=== PATIENT | female | born 1980 | race Caucasian/White ===

== ENCOUNTER 2016-05-11 11:25 | Inpatient (IN) | payer BC ==
[2016-05-11 12:13] VITALS: BMI 29.1
--- NOTE | 2016-05-11 13:22 | HP ---
Admission ROS [facility] Chief Complaint: I AM HERE FOR REHAB FROM COCAINE ,HEROIN,MMTP 150 MGS/DAY,LAST MEIDCATED Saturday05/06/16 SCOLIOSIS ASTHMA LAST DETOX IN [facility] 05/06/16 TO 05/11/16 SOBRIETY PERIOD 9 YEARS Allergies/Adverse Reactions: Allergies Allergy/AdvReac Type Severity Reaction Status Date / Time No Known Allergies Allergy Verified 05/11/16 13:35 History of Present Illness: THIS 36 YEARS OLD FEMALE WITH HEROIN DEPENDENCE AND COCAINE DEPENDENCE,MMTP 150 MGS/DAY,LAST MEDICATED 05/06/16 FOR REHAB MENTIONED Exam Limitations: No Limitations - Ebola screening Have you traveled outside of the country in the last 21 days: No Have you had contact with anyone from an Ebola affected area: No Have you been sick,other than usual withdrawal symptoms: No Do you have a fever: No - Review of Systems Constitutional: No Symptoms Reported EENT: reports: No Symptoms Reported Respiratory: reports: No Symptoms reported, Other (ASTHMA) Cardiac: reports: No Symptoms Reported GI: reports: Nausea : reports: No Symptoms Reported Musculoskeletal: reports: Muscle Pain Integumentary: reports: No Symptoms Reported Neuro: reports: No Symptoms reported Endocrine: reports: No Symptoms Reported Hematology: reports: No Symptoms Reported Psychiatric: reports: No Sypmtoms Reported Other Systems: Reviewed and Negative Patient History - Patient Medical History Hx Anemia: No Hx Asthma: Yes (ON ALBUTROL INHALER) Hx Chronic Obstructive Pulmonary Disease (COPD): No Hx Cancer: No Hx Cardiac Disorders: No Hx Congestive Heart Failure: No Hx Hypertension: No Hx Hypercholesterolemia: No Hx Pacemaker: No HX Cerebrovascular Accident: No Hx Seizures: No Hx Dementia: No Hx Diabetes: No Hx Gastrointestinal Disorders: No Hx Liver Disease: No Hx Genitourinary Disorders: No Hx Sexually Transmitted Disorders: No Hx Renal Disease (ESRD): No Hx Thyroid Disease: No Hx Human Immunodeficiency Virus (HIV): No (LAST 01/13 NEGATIVE) Hx Hepatitis C: No Hx Depression: No Hx Suicide Attempt: No Hx Bipolar Disorder: No Hx Schizophrenia: No Other Medical History: NO SUICIDAL,NO HOMICIDAL - Patient Surgical History Past Surgical History: Yes Hx Section: Yes ( SECTION LAST 03/15/09) Other Surgical History: BREAST AUGMENTATION ,TONSILLECTOMY AT AGE OF 31 YEARS OLD ,S/P TUBAL LIGATION - PPD History Previous Implant?: Yes Documented Results: Negative w/proof PPD to be Administered?: No - Reproductive History Patient is a Female of Child Bearing Age (11 -55 yrs old): Yes Last Menstrual Period: 05/06/16 Patient : No - Smoking Cessation Smoking history: Never smoked - Substance & Tx. History Hx Alcohol Use: No Hx Substance Use: Yes Substance Use Type: Cocaine, Heroin Hx Substance Use Treatment: Yes ([facility] 05/06/16 TO 05/11/14) - Substances Abused Heroin Route: Injection Frequency: Daily Amount used: 10 BAGS Age of first use: 35 Date of Last Use: 05/06/16 Cocaine Route: Injection Frequency: 3-6 times per week Amount used: 80$ Age of first use: 35 Date of Last Use: 05/06/16 Family Disease History - Family Disease History Family History: Denies Admission Physical Exam [facility] - Vital Signs Vital Signs: Vital Signs - 24 hr 05/11/16 12:11 Temperature 97.2 F L Pulse Rate 110 H Respiratory 18 Rate Blood Pressure 115/95 - Physical General Appearance: Yes: Within Normal Limits HEENTM: Yes: Within Normal Limits Respiratory: Yes: Lungs Clear Neck: Yes: Within Normal Limits Breast: Yes: Breast Exam Deferred Cardiology: Yes: Within Normal Limits, Regular Rhythm, Regular Rate, S1, S2 Abdominal: Yes: Within Normal Limits, Normal Bowel Sounds, Non Tender, Flat, Soft Genitourinary: Yes: Within Normal Limits Back: Yes: Muscle Spasm Extremities: Yes: Within Normal Limits Neurological: Yes: Within Normal Limits, health spa manager II-XII NML intact, Fully Oriented, Alert, Motor Strength 5/5 Integumentary: Yes: Within Normal Limits Lymphatic: Yes: Within Normal Limits - Diagnostic (1) Heroin dependence Current Visit: Yes Status: Acute (2) Cocaine dependence Current Visit: Yes Status: Acute (3) Methadone maintenance therapy patient Current Visit: Yes Status: Acute (4) Scoliosis Current Visit: Yes Status: Acute Cleared for Admission [facility] - Detox or Rehab Claeared for Rehab Admission: Yes [facility] Breath Alcohol Content Breath Alcohol Content: 0 Urine Pregancy Test - Result Urine Test Results: Negative- NO Line Present Urine Drug Screen - Results Drug Screen Negative: No Urine Drug Screen Results: BZO-Benzodiazepines, MTD-Methadone
[2016-05-11] MEDS ORDERED: guaiFENesin/D-METHORPHAN HB 10 ML UNIT-DOSE CUPS PO PRN (13:50)
[2016-05-11] MEDS ORDERED: P-EPHED 60MG/TRIPROLIDI 2.5MG TABLET PO PRN (13:50)
[2016-05-11] MEDS ORDERED: LOPERAMIDE HCL 2 MG CAPSULE PO PRN (13:50)
[2016-05-11] MEDS ORDERED: METHADONE HCL 10 MG TABLET PO ONE (13:52)
[2016-05-11] MEDS ORDERED: METHADONE 80 MG, METHADONE 20 MG PO ONE (14:35)
[2016-05-11] MEDS ORDERED: METHADONE HCL 10 MG TABLET ONE (15:34)
[2016-05-11] MEDS ORDERED: METHADONE HCL 40 MG DISPERSABLE TABLET ONE (15:35)
[2016-05-11] MEDS ORDERED: PNEUMOC 13-VAL CONJ-DIP CRM/PF 0.5 ML DISP.SYRIN IM ONE (15:56)
[2016-05-11] MEDS: THIAMINE HCL 100 MG TABLET (FP) PO SCH (21:25)
[2016-05-11] MEDS: diphenhydrAMINE HCL 50 MG CAPSULE PO PRN (21:26)
[2016-05-12 03:24] LABS: URINE APPEARANCE CLOUDY; URINE BILIRUBIN NEGATIVE (NEGATIVE); URINE COLOR YELLOW; URINE GLUCOSE (UA) NEGATIVE (NEGATIVE); URINE KETONE NEGATIVE (NEGATIVE); URINE NITRITE POSITIVE (NEGATIVE); URINE PROTEIN NEGATIVE (NEGATIVE); URINE UROBILINOGEN NEGATIVE E.U./dl (0.2-1.0)
[2016-05-12 03:34] LABS: URINE BLOOD 2+ (NEGATIVE); URINE LEUK ESTERASE 3+ (NEGATIVE)
[2016-05-12 03:43] LABS: URINE BACTERIA FEW /hpf (NONE SEEN); URINE RBC 12 /hpf (0-3); URINE WBC 8 /hpf (3-5)
[2016-05-12] MEDS ORDERED: METHADONE HCL 10 MG TABLET PO ONE (06:00)
[2016-05-12] MEDS ORDERED: METHADONE 80 MG, METHADONE 30 MG PO ONE (06:00)
[2016-05-12] MEDS ORDERED: METHADONE HCL 10 MG TABLET ONE (06:14)
[2016-05-12] MEDS ORDERED: METHADONE HCL 40 MG DISPERSABLE TABLET ONE (06:15)
[2016-05-12] MEDS: IBUPROFEN 400 MG TABLET (FP) PO PRN ×3 (06:33→21:33)
[2016-05-12] MEDS: PRENATAL VITAMINS W/ FOLIC ACID TABLET (FP) PO SCH (09:47)
[2016-05-12] MEDS: MAGNESIUM HYDROX 2400MG/30ML ORAL SUSPENSION 30 ML CUP PO PRN (09:47)
[2016-05-12 11:11] LABS: ALBUMIN 4.1 g/dl (3.4-5.0); ANION GAP 9 (8-16); BILIRUBIN,TOTAL 0.3 mg/dL (0.2-1.0); CALCIUM 9.8 mg/dL (8.5-10.1); CO2 25 mmol/L (21-32); CREATININE 0.9 mg/dL (0.55-1.02); GLUCOSE,RANDOM 97 mg/dL (74-106); SGOT/AST 23 U/L (15-37); SGPT/ALT 21 U/L (12-78); TOT PROT 8.5 g/dl (6.4-8.2)
[2016-05-12 11:12] LABS: ALK PHOS 104 U/L (45-117)
[2016-05-12 11:14] LABS: MCH 21.8 pg (25.7-33.7); MCHC 31.2 g/dl (32.0-36.0); MEAN CELL VOLUME 69.8 fl (80-96); MEAN PLT VOLUME 10.2 fl (7.5-11.1); PLATELET COUNT 272 K/MM3 (134-434); RDW 17.5 % (11.6-15.6); WHITE BLOOD COUNT 6.4 K/mm3 (4.0-10.0)
[2016-05-12] MEDS ORDERED: INFLUENZA VACCINE 45 MCG/0.5 ML (MDV 16-17) IM ONE (12:00)
[2016-05-12] MEDS ORDERED: PNEUMOCOCCAL 23 VACCINE 0.5 ML VIAL IM ONE (12:00)
--- NOTE | 2016-05-12 13:36 | EKG ---
Test Reason : Blood Pressure : / mmHG Vent. Rate : 070 BPM Atrial Rate : 070 BPM P-R Int : 148 ms QRS Dur : 088 ms QT Int : 462 ms P-R-T Axes : 064 -18 041 degrees QTc Int : 498 ms NORMAL SINUS RHYTHM PROLONGED QT ABNORMAL ECG NO PREVIOUS ECGS AVAILABLE Confirmed by JOSÉ MANUEL STAPLETON MD ([id number]) on 05/12/2016 1:36:16 PM Referred By: Anushka Montes De Oca Confirmed By:JOSÉ MANUEL STAPLETON MD
--- NOTE | 2016-05-12 13:39 | PN ---
S Progress Note Note: EKG done today shows NSR, normal EKG D/C daily EKG
[2016-05-12] MEDS: diphenhydrAMINE HCL 50 MG CAPSULE PO PRN (21:33)
[2016-05-12] MEDS: THIAMINE HCL 100 MG TABLET (FP) PO SCH (21:33)
[2016-05-13] MEDS ORDERED: METHADONE HCL 40 MG DISPERSABLE TABLET PO ONE (06:00)
[2016-05-13] MEDS: IBUPROFEN 400 MG TABLET (FP) PO PRN ×2 (06:15→21:16)
[2016-05-13] MEDS: PRENATAL VITAMINS W/ FOLIC ACID TABLET (FP) PO SCH (10:08)
[2016-05-13] MEDS: diphenhydrAMINE HCL 50 MG CAPSULE PO PRN (21:16)
[2016-05-13] MEDS: THIAMINE HCL 100 MG TABLET (FP) PO SCH (21:16)
[2016-05-14] MEDS ORDERED: METHADONE HCL 10 MG TABLET PO ONE (06:00)
[2016-05-14] MEDS ORDERED: METHADONE 120 MG, METHADONE 10 MG PO ONE (06:00)
[2016-05-14] MEDS ORDERED: METHADONE HCL 10 MG TABLET ONE (06:01)
[2016-05-14] MEDS ORDERED: METHADONE HCL 40 MG DISPERSABLE TABLET ONE (06:02)
[2016-05-14] MEDS: MAG HYDROX/AL HYDROX/SIMETH 30 ML UNIT-DOSE CUP PO PRN (06:17)
[2016-05-14] MEDS: PRENATAL VITAMINS W/ FOLIC ACID TABLET (FP) PO SCH (10:14)
[2016-05-14] MEDS: MAGNESIUM HYDROX 2400MG/30ML ORAL SUSPENSION 30 ML CUP PO PRN (11:58)
--- NOTE | 2016-05-14 13:45 | HP ---
Psychiatrist Admission - Data Date of interview: 05/14/16 Admission source: [facility] Identifying data: This is the first admission to [address] [place] [address] for this 36 years old female mother of 4(17,10,8 and 7 yo),3 youngest kids [place] with their father in .Patient is unemployed,supported by family. Medical History: H/o Breast augmentation,C Section,Tubal ligation. Psychiatric History: denies Physical/Sexual Abuse/Trauma History: denies Vital Signs: Vital Signs - 24 hr 05/14/16 05/14/16 05/14/16 00:30 03:30 07:22 Temperature 97.3 F L Pulse Rate 73 Respiratory 18 18 18 Rate Blood Pressure 123/85 Allergies/Adverse Reactions: Allergies Allergy/AdvReac Type Severity Reaction Status Date / Time No Known Allergies Allergy Verified 05/11/16 13:35 Date of last physical exam: 05/11/16 Concur with the findings of this exam: Yes - Substance Abuse/Tx History Hx Alcohol Use: Yes (socially) Hx Substance Use: Yes (report cocaine since 35 yo,pain killers since 1997.heroin since 2016 ) Substance Use Type: Cocaine, Heroin 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) - Admission Criteria Previous failed treatment: Yes Poor recovery environment: Yes Comorbidities: Yes Lacks judgement: Yes Mental Status Exam - Mental Status Exam Alert and Oriented to: Time, Place, Person Cognitive Function: Grossly Intact Patient Appearance: Well Groomed Mood: Euthymic Affect: Mood Congruent Patient Behavior: Cooperative Speech Pattern: Clear Voice Loudness: Normal Thought Process: Goal Oriented Thought Disorder: Not Present Hallucinations: Denies Suicidal Ideation: Denies Homicidal Ideation: Denies Insight/Judgement: Fair Sleep: Fair Appetite: Fair Muscle strength/Tone: Normal Gait/Station: Normal Psychiatric Findings - Problem List ([place] 1, 2,3) (1) Cocaine dependence Current Visit: Yes Status: Chronic (2) Methadone maintenance therapy patient Current Visit: Yes Status: Chronic (3) Scoliosis Current Visit: Yes Status: Chronic (4) Opioid dependence Current Visit: Yes Status: Chronic - Initial Treatment Plan Initial Treatment Plan: Will monitor progress.
--- NOTE | 2016-05-14 16:23 | EKG ---
Test Reason : Blood Pressure : / mmHG Vent. Rate : 068 BPM Atrial Rate : 068 BPM P-R Int : 148 ms QRS Dur : 086 ms QT Int : 432 ms P-R-T Axes : 048 -06 035 degrees QTc Int : 459 ms NORMAL SINUS RHYTHM NORMAL ECG WHEN COMPARED WITH ECG OF 11-MAY-2016 22:25, NO SIGNIFICANT CHANGE WAS FOUND Confirmed by BABAK DONOVAN MD ([id number]) on 05/14/2016 4:22:57 PM Referred By: Anushka Montes De Oca Confirmed By:BABAK DONOVAN MD
[2016-05-14] MEDS: THIAMINE HCL 100 MG TABLET (FP) PO SCH (21:33)
[2016-05-14] MEDS: IBUPROFEN 400 MG TABLET (FP) PO PRN (21:33)
[2016-05-14] MEDS: hydrOXYzine PAMOATE 50 MG CAPSULE (FP) PO PRN (21:34)
[2016-05-14] MEDS: diphenhydrAMINE HCL 50 MG CAPSULE PO PRN (23:25)
[2016-05-15] MEDS ORDERED: METHADONE HCL 10 MG TABLET ONE (05:44)
[2016-05-15] MEDS ORDERED: METHADONE HCL 40 MG DISPERSABLE TABLET ONE (05:45)
[2016-05-15] MEDS ORDERED: METHADONE 120 MG, METHADONE 20 MG PO ONE (06:00)
[2016-05-15] MEDS ORDERED: METHADONE HCL 10 MG TABLET PO ONE (06:00)
[2016-05-15] MEDS: IBUPROFEN 400 MG TABLET (FP) PO PRN ×2 (06:32→21:32)
[2016-05-15] MEDS: ACETAMINOPHEN 325 MG TABLET (FP) PO PRN (10:03)
[2016-05-15] MEDS: MAG HYDROX/AL HYDROX/SIMETH 30 ML UNIT-DOSE CUP PO PRN (10:03)
[2016-05-15] MEDS: PRENATAL VITAMINS W/ FOLIC ACID TABLET (FP) PO SCH (10:03)
[2016-05-15] MEDS: diphenhydrAMINE HCL 50 MG CAPSULE PO PRN (21:30)
[2016-05-15] MEDS: THIAMINE HCL 100 MG TABLET (FP) PO SCH (21:30)
[2016-05-16] MEDS ORDERED: METHADONE HCL 10 MG TABLET PO ONE (06:00)
[2016-05-16] MEDS ORDERED: METHADONE HCL 10 MG TABLET ONE (06:00)
[2016-05-16] MEDS ORDERED: METHADONE HCL 40 MG DISPERSABLE TABLET ONE (06:01)
[2016-05-16] MEDS: METHADONE 120 MG, METHADONE 30 MG PO SCH (06:03)
[2016-05-16] MEDS: IBUPROFEN 400 MG TABLET (FP) PO PRN (06:04)
[2016-05-16] MEDS: MAGNESIUM HYDROX 2400MG/30ML ORAL SUSPENSION 30 ML CUP PO PRN (09:59)
[2016-05-16] MEDS: PRENATAL VITAMINS W/ FOLIC ACID TABLET (FP) PO SCH (09:59)
[2016-05-16] MEDS: THIAMINE HCL 100 MG TABLET (FP) PO SCH (21:24)
[2016-05-16] MEDS: traZODone HCL 50 MG TABLET (FP) PO SCH (21:25)
[2016-05-17] MEDS ORDERED: METHADONE HCL 40 MG DISPERSABLE TABLET ONE (03:21)
[2016-05-17] MEDS ORDERED: METHADONE HCL 10 MG TABLET ONE (03:21)
[2016-05-17] MEDS ORDERED: METHADONE HCL 10 MG TABLET PO SCH (06:00)
[2016-05-17] MEDS: METHADONE 120 MG, METHADONE 30 MG PO SCH (06:06)
[2016-05-17] MEDS: IBUPROFEN 400 MG TABLET (FP) PO PRN ×2 (06:07→16:02)
[2016-05-17] MEDS: PRENATAL VITAMINS W/ FOLIC ACID TABLET (FP) PO SCH (10:11)
[2016-05-17] MEDS: ACETAMINOPHEN 325 MG TABLET (FP) PO PRN (21:22)
[2016-05-17] MEDS: traZODone HCL 50 MG TABLET (FP) PO SCH (21:23)
[2016-05-17] MEDS: THIAMINE HCL 100 MG TABLET (FP) PO SCH (21:23)
[2016-05-18] MEDS ORDERED: METHADONE HCL 10 MG TABLET ONE (03:43)
[2016-05-18] MEDS ORDERED: METHADONE HCL 40 MG DISPERSABLE TABLET ONE (03:44)
[2016-05-18] MEDS: METHADONE 120 MG, METHADONE 30 MG PO SCH (06:12)
[2016-05-18] MEDS: ACETAMINOPHEN 325 MG TABLET (FP) PO PRN ×2 (06:15→15:10)
[2016-05-18] MEDS: PRENATAL VITAMINS W/ FOLIC ACID TABLET (FP) PO SCH (10:59)
[2016-05-18] MEDS: traZODone HCL 50 MG TABLET (FP) PO SCH (21:34)
[2016-05-18] MEDS: THIAMINE HCL 100 MG TABLET (FP) PO SCH (21:34)
[2016-05-18] MEDS: IBUPROFEN 400 MG TABLET (FP) PO PRN (21:36)
[2016-05-19] MEDS ORDERED: METHADONE HCL 10 MG TABLET ONE (05:41)
[2016-05-19] MEDS ORDERED: METHADONE HCL 40 MG DISPERSABLE TABLET ONE (05:42)
[2016-05-19] MEDS: METHADONE 120 MG, METHADONE 30 MG PO SCH (06:08)
[2016-05-19] MEDS: ACETAMINOPHEN 325 MG TABLET (FP) PO PRN (06:11)
[2016-05-19] MEDS ORDERED: PT OWN MED DRAWER 7, Y5N ONE (09:02)
[2016-05-19] MEDS: PRENATAL VITAMINS W/ FOLIC ACID TABLET (FP) PO SCH (10:14)
[2016-05-19] MEDS: MAGNESIUM HYDROX 2400MG/30ML ORAL SUSPENSION 30 ML CUP PO PRN (12:48)
[2016-05-19] MEDS: MENTHOL/PHENOL 1 EACH UD MM PRN (12:48)
[2016-05-19] MEDS: traZODone HCL 50 MG TABLET (FP) PO SCH (21:35)
[2016-05-19] MEDS: THIAMINE HCL 100 MG TABLET (FP) PO SCH (21:35)
[2016-05-19] MEDS: IBUPROFEN 400 MG TABLET (FP) PO PRN (21:36)
[2016-05-20] MEDS ORDERED: METHADONE HCL 40 MG DISPERSABLE TABLET ONE (05:44)
[2016-05-20] MEDS ORDERED: METHADONE HCL 10 MG TABLET ONE (05:44)
[2016-05-20] MEDS: METHADONE 120 MG, METHADONE 30 MG PO SCH (05:58)
[2016-05-20] MEDS: PRENATAL VITAMINS W/ FOLIC ACID TABLET (FP) PO SCH (10:01)
[2016-05-20] MEDS: MENTHOL/PHENOL 1 EACH UD MM PRN (10:01)
[2016-05-20] MEDS: IBUPROFEN 400 MG TABLET (FP) PO PRN (11:52)
[2016-05-20] MEDS: traZODone HCL 50 MG TABLET (FP) PO SCH (21:30)
[2016-05-20] MEDS: THIAMINE HCL 100 MG TABLET (FP) PO SCH (21:30)
[2016-05-20] MEDS: hydrOXYzine PAMOATE 50 MG CAPSULE (FP) PO PRN (21:32)
[2016-05-21] MEDS ORDERED: METHADONE HCL 10 MG TABLET ONE (05:42)
[2016-05-21] MEDS ORDERED: METHADONE HCL 40 MG DISPERSABLE TABLET ONE (05:42)
[2016-05-21] MEDS: METHADONE 120 MG, METHADONE 30 MG PO SCH (06:18)
[2016-05-21] MEDS: IBUPROFEN 400 MG TABLET (FP) PO PRN ×2 (06:21→21:29)
[2016-05-21] MEDS: PRENATAL VITAMINS W/ FOLIC ACID TABLET (FP) PO SCH (09:54)
[2016-05-21] MEDS: MENTHOL/PHENOL 1 EACH UD MM PRN (09:56)
[2016-05-21] MEDS: THIAMINE HCL 100 MG TABLET (FP) PO SCH (21:29)
[2016-05-21] MEDS: hydrOXYzine PAMOATE 50 MG CAPSULE (FP) PO PRN (21:29)
[2016-05-21] MEDS: traZODone HCL 50 MG TABLET (FP) PO SCH (21:29)
[2016-05-22] MEDS ORDERED: METHADONE HCL 10 MG TABLET ONE (05:20)
[2016-05-22] MEDS ORDERED: METHADONE HCL 40 MG DISPERSABLE TABLET ONE (05:20)
[2016-05-22] MEDS ORDERED: METHADONE HCL 10 MG TABLET PO SCH (06:00)
[2016-05-22] MEDS: METHADONE 120 MG, METHADONE 30 MG PO SCH (06:03)
[2016-05-22] MEDS: IBUPROFEN 400 MG TABLET (FP) PO PRN ×2 (06:06→21:36)
[2016-05-22] MEDS: PRENATAL VITAMINS W/ FOLIC ACID TABLET (FP) PO SCH (10:03)
[2016-05-22] MEDS: MAGNESIUM HYDROX 2400MG/30ML ORAL SUSPENSION 30 ML CUP PO PRN (10:04)
[2016-05-22] MEDS: THIAMINE HCL 100 MG TABLET (FP) PO SCH (21:36)
[2016-05-22] MEDS: traZODone HCL 50 MG TABLET (FP) PO SCH (21:36)
[2016-05-22] MEDS: hydrOXYzine PAMOATE 50 MG CAPSULE (FP) PO PRN (21:36)
[2016-05-22] MEDS: DOCUSATE SODIUM 100 MG CAPSULE (FP) PO SCH (21:36)
[2016-05-23] MEDS ORDERED: METHADONE HCL 10 MG TABLET ONE (03:09)
[2016-05-23] MEDS ORDERED: METHADONE HCL 40 MG DISPERSABLE TABLET ONE (03:09)
[2016-05-23] MEDS: METHADONE 120 MG, METHADONE 30 MG PO SCH (06:10)
[2016-05-23] MEDS: IBUPROFEN 400 MG TABLET (FP) PO PRN (06:11)
[2016-05-23] MEDS: MAGNESIUM CITRATE 300 ML BOTTLE PO PRN (10:11)
[2016-05-23] MEDS: DOCUSATE SODIUM 100 MG CAPSULE (FP) PO SCH ×2 (10:11→21:31)
[2016-05-23] MEDS: PRENATAL VITAMINS W/ FOLIC ACID TABLET (FP) PO SCH (10:11)
--- NOTE | 2016-05-23 16:40 | PN ---
Psychiatric Progress Note Vital Signs: Vital Signs Period Temp Pulse Resp BP Sys/Ahuja Pulse Ox Last 24 Hr 97.1 F 75 18-18 113/80 Date of Session: 05/23/16 Chief Complaint:: My sleep is still big problem. HPI: Patient addressed Opioid and Cocaine dependence comorbid with Substance induced mood/sleep disorder. Current Medications: Active Medications Generic Name Dose Route Start Last Admin Trade Name Freq PRN Reason Stop Dose Admin Acetaminophen 650 mg 05/11/16 13:50 05/19/16 06:11 Tylenol - PO 650 mg Q4H PRN Administration PAIN Al Hydroxide/Mg Hydroxide 30 ml 05/11/16 13:50 05/15/16 10:03 Mylanta Oral Suspension - PO 30 ml Q6H PRN Administration DYSPEPSIA Diphenhydramine HCl 50 mg 05/11/16 13:50 05/15/16 21:30 Benadryl - PO 50 mg HSMR1 PRN Administration INSOMNIA Docusate Sodium 100 mg 05/22/16 22:00 05/23/16 10:11 Colace - PO 100 mg BID ADI Administration Eucalyptus/Menthol/Phenol/Sorbitol 1 each 05/11/16 13:50 05/21/16 09:56 Cepastat Lozenge - MM 1 each Q4H PRN Administration SORE THROAT Guaifenesin 10 ml 05/11/16 13:50 Robitussin Dm - PO Q6H PRN COUGH Hydroxyzine Pamoate 50 mg 05/11/16 13:50 05/22/16 21:36 Vistaril - PO 50 mg Q4H PRN Administration AGITATION Ibuprofen 400 mg 05/11/16 13:50 05/23/16 06:11 Motrin - PO 400 mg Q6H PRN Administration SEVERE PAIN Loperamide HCl 4 mg 05/11/16 13:50 Imodium - PO Q6H PRN DIARRHEA Magnesium Citrate 300 ml 05/11/16 13:50 05/23/16 10:11 Citroma - PO 300 ml Q48H PRN Administration CONSTIPATION Magnesium Hydroxide 30 ml 05/11/16 13:50 05/22/16 10:04 Milk Of Magnesia - PO 30 ml DAILY PRN Administration CONSTIPATION Methadone HCl 120 mg/ 150 mg 05/22/16 06:00 05/23/16 06:10 Methadone HCl 30 mg PO 150 mg DAILY@0600 ADI Administration Multivit/Folic Acid/Iron 1 tab 05/12/16 10:00 05/23/16 10:11 Vitamins (Sjr) - PO 1 tab DAILY ADI Administration Pseudoephedrine/Triprolidine 1 combo 05/11/16 13:50 Actifed - PO TID PRN NASAL CONGESTION Thiamine HCl 100 mg 05/11/16 22:00 05/22/16 21:36 Vitamin B1 - PO 100 mg HS ADI Administration Trazodone HCl 100 mg 05/23/16 22:00 Desyrel - PO HS ADI Current Side Effect: No Lab tests ordered: No Lab tests reviewed: Yes Provider note:: Patient was evaluated today ,chart was revuewed.She addressed sleeping difficulties,still not able to fall asleep and sleep pattern is interrupted. Properties of Trazodone and other medications for insomnia has been discussed with the patient including side effects,benefits and dose adjustment. Supportive therapy provided. Trazodone 50 mg po hs will be adjusted to 100 mg po hs. Supportive therapy provided. Total face to face time:: 30 Mental Status Exam - Mental Status Exam Alert and Oriented to: Time, Place, Person Cognitive Function: Grossly Intact Patient Appearance: Well Groomed Mood: Anxious Affect: Labile Patient Behavior: Cooperative Speech Pattern: Clear Voice Loudness: Normal Thought Process: Goal Oriented Thought Disorder: Not Present Hallucinations: Denies Suicidal Ideation: Denies Homicidal Ideation: Denies Insight/Judgement: Fair Sleep: Difficulty falling asleep Appetite: Good Muscle strength/Tone: Normal Gait/Station: Normal Psychiatric Treatment Plan - Problem List (1) Cocaine dependence Current Visit: Yes (2) Methadone maintenance therapy patient Current Visit: Yes (3) Scoliosis Current Visit: Yes (4) Opioid dependence Current Visit: Yes
[2016-05-23] MEDS: THIAMINE HCL 100 MG TABLET (FP) PO SCH (21:31)
[2016-05-23] MEDS: traZODone HCL 100 MG TABLET (FP) PO SCH (21:32)
[2016-05-23] MEDS: ACETAMINOPHEN 325 MG TABLET (FP) PO PRN (21:33)
[2016-05-23] MEDS: hydrOXYzine PAMOATE 50 MG CAPSULE (FP) PO PRN (21:33)
[2016-05-24] MEDS ORDERED: METHADONE HCL 10 MG TABLET ONE (03:12)
[2016-05-24] MEDS ORDERED: METHADONE HCL 40 MG DISPERSABLE TABLET ONE (03:12)
[2016-05-24] MEDS: METHADONE 120 MG, METHADONE 30 MG PO SCH (05:58)
[2016-05-24] MEDS: IBUPROFEN 400 MG TABLET (FP) PO PRN (06:00)
[2016-05-24] MEDS: DOCUSATE SODIUM 100 MG CAPSULE (FP) PO SCH ×2 (10:15→21:31)
[2016-05-24] MEDS: PRENATAL VITAMINS W/ FOLIC ACID TABLET (FP) PO SCH (10:15)
[2016-05-24] MEDS ORDERED: PT OWN MED DRAWER 7, Y5N ONE (15:12)
[2016-05-24] MEDS: ACETAMINOPHEN 325 MG TABLET (FP) PO PRN (15:15)
[2016-05-24] MEDS: traZODone HCL 100 MG TABLET (FP) PO SCH (21:31)
[2016-05-24] MEDS: THIAMINE HCL 100 MG TABLET (FP) PO SCH (21:31)
[2016-05-24] MEDS: hydrOXYzine PAMOATE 50 MG CAPSULE (FP) PO PRN (21:32)
[2016-05-25] MEDS ORDERED: METHADONE HCL 10 MG TABLET ONE (05:34)
[2016-05-25] MEDS ORDERED: METHADONE HCL 40 MG DISPERSABLE TABLET ONE (05:35)
[2016-05-25] MEDS: METHADONE 120 MG, METHADONE 30 MG PO SCH (06:04)
[2016-05-25] MEDS: IBUPROFEN 400 MG TABLET (FP) PO PRN ×3 (06:05→21:38)
[2016-05-25] MEDS: PRENATAL VITAMINS W/ FOLIC ACID TABLET (FP) PO SCH (09:56)
[2016-05-25] MEDS: DOCUSATE SODIUM 100 MG CAPSULE (FP) PO SCH ×2 (09:56→21:38)
--- NOTE | 2016-05-25 13:27 | PN ---
[facility] Progress Note Note: Pt. C/O RCVA tenderness Vital Signs - 8 hr 05/25/16 06:49 Temperature 98.3 F Pulse Rate 105 H Respiratory 18 Rate Blood Pressure 99/66 Laboratory Tests 05/11/16 05/12/16 05/12/16 16:04 06:20 06:20 WBC 6.4 RBC 5.82 H Hgb 12.7 Hct 40.6 MCV 69.8 L MCHC 31.2 L RDW 17.5 H Plt Count 272 MPV 10.2 Sodium 141 Potassium 4.3 Chloride 107 Carbon Dioxide 25 Anion Gap 9 BUN 10 Creatinine 0.9 Creat Clearance w eGFR > 60 Random Glucose 97 Calcium 9.8 Total Bilirubin 0.3 AST 23 ALT 21 Alkaline Phosphatase 104 Total Protein 8.5 H Albumin 4.1 Urine Color Yellow Urine Appearance Cloudy Urine pH 7.0 Ur Specific [place] 1.005 Urine Protein Negative Urine Glucose (UA) Negative Urine Ketones Negative Urine Blood 2+ H Urine Nitrite Positive Urine Bilirubin Negative Urine Urobilinogen Negative Ur Leukocyte Esterase 3+ H Urine RBC 12 Urine WBC 8 Ur Epithelial Cells Moderate Urine Bacteria Few RPR Titer 05/12/16 06:20 WBC RBC Hgb Hct MCV MCHC RDW Plt Count MPV Sodium Potassium Chloride Carbon Dioxide Anion Gap BUN Creatinine Creat Clearance w eGFR Random Glucose Calcium Total Bilirubin AST ALT Alkaline Phosphatase Total Protein Albumin Urine Color Urine Appearance Urine pH Ur Specific [place] Urine Protein Urine Glucose (UA) Urine Ketones Urine Blood Urine Nitrite Urine Bilirubin Urine Urobilinogen Ur Leukocyte Esterase Urine RBC Urine WBC Ur Epithelial Cells Urine Bacteria RPR Titer Nonreactive U/A consistent with UTI P : start Bactrim ds bid x 7 days
[2016-05-25] MEDS: SULFAMETHOXAZOLE/TRIMETHOPRIM 800MG/160MG D.S. TABLET PO SCH ×2 (14:11→21:38)
[2016-05-25] MEDS: hydrOXYzine PAMOATE 50 MG CAPSULE (FP) PO PRN (21:38)
[2016-05-25] MEDS: traZODone HCL 100 MG TABLET (FP) PO SCH (21:38)
[2016-05-25] MEDS: THIAMINE HCL 100 MG TABLET (FP) PO SCH (22:30)
[2016-05-26] MEDS ORDERED: METHADONE HCL 40 MG DISPERSABLE TABLET ONE (03:12)
[2016-05-26] MEDS ORDERED: METHADONE HCL 10 MG TABLET ONE (03:12)
[2016-05-26] MEDS: METHADONE 120 MG, METHADONE 30 MG PO SCH (06:05)
[2016-05-26] MEDS: IBUPROFEN 400 MG TABLET (FP) PO PRN ×2 (06:06→21:28)
[2016-05-26] MEDS: SULFAMETHOXAZOLE/TRIMETHOPRIM 800MG/160MG D.S. TABLET PO SCH ×2 (10:08→21:28)
[2016-05-26] MEDS: PRENATAL VITAMINS W/ FOLIC ACID TABLET (FP) PO SCH (10:09)
[2016-05-26] MEDS: MAGNESIUM HYDROX 2400MG/30ML ORAL SUSPENSION 30 ML CUP PO PRN (10:09)
[2016-05-26] MEDS: DOCUSATE SODIUM 100 MG CAPSULE (FP) PO SCH ×2 (10:09→21:28)
[2016-05-26] MEDS: MAGNESIUM CITRATE 300 ML BOTTLE PO PRN (14:43)
[2016-05-26] MEDS: traZODone HCL 100 MG TABLET (FP) PO SCH (21:28)
[2016-05-26] MEDS: THIAMINE HCL 100 MG TABLET (FP) PO SCH (21:28)
[2016-05-27] MEDS ORDERED: METHADONE HCL 10 MG TABLET ONE (03:13)
[2016-05-27] MEDS ORDERED: METHADONE HCL 40 MG DISPERSABLE TABLET ONE (03:13)
[2016-05-27] MEDS: METHADONE 120 MG, METHADONE 30 MG PO SCH (06:04)
[2016-05-27] MEDS: IBUPROFEN 400 MG TABLET (FP) PO PRN ×2 (06:05→17:35)
[2016-05-27] MEDS: SULFAMETHOXAZOLE/TRIMETHOPRIM 800MG/160MG D.S. TABLET PO SCH ×2 (09:50→21:23)
[2016-05-27] MEDS: PRENATAL VITAMINS W/ FOLIC ACID TABLET (FP) PO SCH (09:50)
[2016-05-27] MEDS: DOCUSATE SODIUM 100 MG CAPSULE (FP) PO SCH ×2 (09:50→21:23)
[2016-05-27] MEDS: MAGNESIUM HYDROX 2400MG/30ML ORAL SUSPENSION 30 ML CUP PO PRN (16:32)
[2016-05-27] MEDS: traZODone HCL 100 MG TABLET (FP) PO SCH (21:23)
[2016-05-27] MEDS: THIAMINE HCL 100 MG TABLET (FP) PO SCH (21:23)
[2016-05-27] MEDS: hydrOXYzine PAMOATE 50 MG CAPSULE (FP) PO PRN (21:23)
[2016-05-28] MEDS ORDERED: METHADONE HCL 10 MG TABLET ONE (03:12)
[2016-05-28] MEDS ORDERED: METHADONE HCL 40 MG DISPERSABLE TABLET ONE (03:12)
[2016-05-28] MEDS: METHADONE 120 MG, METHADONE 30 MG PO SCH (06:03)
[2016-05-28] MEDS: IBUPROFEN 400 MG TABLET (FP) PO PRN ×2 (06:04→21:39)
[2016-05-28] MEDS: PRENATAL VITAMINS W/ FOLIC ACID TABLET (FP) PO SCH (10:18)
[2016-05-28] MEDS: SULFAMETHOXAZOLE/TRIMETHOPRIM 800MG/160MG D.S. TABLET PO SCH (10:18)
[2016-05-28] MEDS: DOCUSATE SODIUM 100 MG CAPSULE (FP) PO SCH ×2 (10:18→21:39)
--- NOTE | 2016-05-28 14:31 | PN ---
[facility] Progress Note Note: Microbiology 05/25/16 14:00 Urine - Urine Clean Catch Urine Culture - Final Strep Agalactiae Group B Sensitive to levaquin, we'll d/c bactrim ds. pt. still c/o constipation we'll give fleet's enema
[2016-05-28] MEDS ORDERED: SODIUM PHOSPHATE/NA BIPHOS 133 ML ENEMA PR ONE (15:30)
[2016-05-28] MEDS: LIDOCAINE 5% TOPICAL PATCH TP SCH (15:43)
[2016-05-28] MEDS: LEVOFLOXACIN 500 MG TABLET (FP) PO SCH (15:51)
--- NOTE | 2016-05-28 15:55 | PN ---
Psychiatric Progress Note Vital Signs: Vital Signs Period Temp Pulse Resp BP Sys/Ahuja Pulse Ox Last 24 Hr 97.5 F 67 18-18 118/80 Date of Session: 05/28/16 Chief Complaint:: Arik depressed ,Arik thinking too much about my situation." HPI: Patient addressed Opioid and Cocaine dependence comorbid with Substance induced mood disorder. ROS: Significant for scoliosis. Current Medications: Active Medications Generic Name Dose Route Start Last Admin Trade Name Freq PRN Reason Stop Dose Admin Acetaminophen 650 mg 05/11/16 13:50 05/24/16 15:15 Tylenol - PO 650 mg Q4H PRN Administration PAIN Al Hydroxide/Mg Hydroxide 30 ml 05/11/16 13:50 05/15/16 10:03 Mylanta Oral Suspension - PO 30 ml Q6H PRN Administration DYSPEPSIA Diphenhydramine HCl 50 mg 05/11/16 13:50 05/15/16 21:30 Benadryl - PO 50 mg HSMR1 PRN Administration INSOMNIA Docusate Sodium 100 mg 05/22/16 22:00 05/28/16 10:18 Colace - PO 100 mg BID ADI Administration Eucalyptus/Menthol/Phenol/Sorbitol 1 each 05/11/16 13:50 05/21/16 09:56 Cepastat Lozenge - MM 1 each Q4H PRN Administration SORE THROAT Guaifenesin 10 ml 05/11/16 13:50 Robitussin Dm - PO Q6H PRN COUGH Hydroxyzine Pamoate 50 mg 05/11/16 13:50 05/27/16 21:23 Vistaril - PO 50 mg Q4H PRN Administration AGITATION Ibuprofen 400 mg 05/11/16 13:50 05/28/16 06:04 Motrin - PO 400 mg Q6H PRN Administration SEVERE PAIN Levofloxacin 500 mg 05/28/16 15:30 Levaquin - PO DAILY@0600 ADI Lidocaine 1 patch 05/28/16 15:30 05/28/16 15:43 Lidoderm Patch - TP 1 patch DAILY ADI Administration Loperamide HCl 4 mg 05/11/16 13:50 Imodium - PO Q6H PRN DIARRHEA Magnesium Citrate 300 ml 05/11/16 13:50 05/26/16 14:43 Citroma - PO 300 ml Q48H PRN Administration CONSTIPATION Magnesium Hydroxide 30 ml 05/11/16 13:50 05/27/16 16:32 Milk Of Magnesia - PO 30 ml DAILY PRN Administration CONSTIPATION Methadone HCl 120 mg/ 150 mg 05/22/16 06:00 05/28/16 06:03 Methadone HCl 30 mg PO 150 mg DAILY@0600 ADI Administration Multivit/Folic Acid/Iron 1 tab 05/12/16 10:00 05/28/16 10:18 Vitamins (Sjr) - PO 1 tab DAILY ADI Administration Pseudoephedrine/Triprolidine 1 combo 05/11/16 13:50 Actifed - PO TID PRN NASAL CONGESTION Thiamine HCl 100 mg 05/11/16 22:00 05/27/16 21:23 Vitamin B1 - PO 100 mg HS ADI Administration Trazodone HCl 100 mg 05/23/16 22:00 05/27/16 21:23 Desyrel - PO 100 mg HS ADI Administration Current Side Effect: No Lab tests ordered: No Lab tests reviewed: Yes Provider note:: Chart was revuewed ,patient was evaluated due to ongoing depressed mood,mood instability.She reports thinking a lot about her current situation,preoccupation with negative thougths.Properties of Zoloft has been discussed with the patient including side effect profile,benefits and dose adjustment.Zoloft 25 mg po daily will be started today. Supportive therapy provided. Total face to face time:: 30 Mental Status Exam - Mental Status Exam Alert and Oriented to: Time, Place, Person Cognitive Function: Grossly Intact Patient Appearance: Well Groomed Mood: Anxious Affect: Mood Congruent, Labile Patient Behavior: Cooperative Speech Pattern: Clear Voice Loudness: Normal Thought Process: Goal Oriented Thought Disorder: Not Present Hallucinations: Denies Suicidal Ideation: Denies Homicidal Ideation: Denies Insight/Judgement: Fair Sleep: Fair Appetite: Good Muscle strength/Tone: Normal Gait/Station: Normal Psychiatric Treatment Plan - Problem List (1) Cocaine dependence Current Visit: Yes (2) Methadone maintenance therapy patient Current Visit: Yes (3) Scoliosis Current Visit: Yes (4) Opioid dependence Current Visit: Yes (5) Substance induced mood disorder Current Visit: Yes
[2016-05-28] MEDS: SERTRALINE HCL 25 MG TABLET (FP) PO SCH (19:25)
[2016-05-28] MEDS: traZODone HCL 100 MG TABLET (FP) PO SCH (21:40)
[2016-05-28] MEDS: THIAMINE HCL 100 MG TABLET (FP) PO SCH (21:40)
[2016-05-29] MEDS ORDERED: METHADONE HCL 40 MG DISPERSABLE TABLET ONE (05:47)
[2016-05-29] MEDS ORDERED: METHADONE HCL 10 MG TABLET ONE (05:47)
[2016-05-29] MEDS: METHADONE 120 MG, METHADONE 30 MG PO SCH (05:49)
[2016-05-29] MEDS: LEVOFLOXACIN 500 MG TABLET (FP) PO SCH (06:22)
[2016-05-29] MEDS ORDERED: PT OWN MED DRAWER 7, Y5N ONE (08:38)
[2016-05-29] MEDS: LIDOCAINE 5% TOPICAL PATCH TP SCH (10:31)
[2016-05-29] MEDS: DOCUSATE SODIUM 100 MG CAPSULE (FP) PO SCH ×2 (10:32→21:35)
[2016-05-29] MEDS: PRENATAL VITAMINS W/ FOLIC ACID TABLET (FP) PO SCH (10:32)
[2016-05-29] MEDS: SERTRALINE HCL 25 MG TABLET (FP) PO SCH (10:32)
[2016-05-29] MEDS: IBUPROFEN 400 MG TABLET (FP) PO PRN (17:42)
[2016-05-29] MEDS: traZODone HCL 100 MG TABLET (FP) PO SCH (21:35)
[2016-05-29] MEDS: THIAMINE HCL 100 MG TABLET (FP) PO SCH (21:35)
[2016-05-29] MEDS: hydrOXYzine PAMOATE 50 MG CAPSULE (FP) PO PRN (21:36)
[2016-05-30] MEDS ORDERED: METHADONE HCL 40 MG DISPERSABLE TABLET ONE (05:54)
[2016-05-30] MEDS ORDERED: METHADONE HCL 10 MG TABLET ONE ×2 (05:54→06:25)
[2016-05-30] MEDS ORDERED: METHADONE HCL 10 MG TABLET PO SCH (06:00)
[2016-05-30] MEDS: METHADONE 120 MG, METHADONE 30 MG PO SCH (06:24)
[2016-05-30] MEDS: LEVOFLOXACIN 500 MG TABLET (FP) PO SCH (06:27)
[2016-05-30] MEDS: IBUPROFEN 400 MG TABLET (FP) PO PRN ×2 (06:27→21:34)
[2016-05-30] MEDS: PRENATAL VITAMINS W/ FOLIC ACID TABLET (FP) PO SCH (10:34)
[2016-05-30] MEDS: LIDOCAINE 5% TOPICAL PATCH TP SCH (10:34)
[2016-05-30] MEDS: DOCUSATE SODIUM 100 MG CAPSULE (FP) PO SCH ×2 (10:34→21:32)
[2016-05-30] MEDS: SERTRALINE HCL 25 MG TABLET (FP) PO SCH (10:34)
[2016-05-30] MEDS: MAGNESIUM CITRATE 300 ML BOTTLE PO PRN (15:28)
[2016-05-30] MEDS: traZODone HCL 100 MG TABLET (FP) PO SCH (21:32)
[2016-05-30] MEDS: THIAMINE HCL 100 MG TABLET (FP) PO SCH (21:32)
[2016-05-30] MEDS: hydrOXYzine PAMOATE 50 MG CAPSULE (FP) PO PRN (21:34)
[2016-05-31] MEDS ORDERED: METHADONE HCL 40 MG DISPERSABLE TABLET ONE (03:12)
[2016-05-31] MEDS ORDERED: METHADONE HCL 10 MG TABLET ONE (03:12)
[2016-05-31] MEDS: METHADONE 120 MG, METHADONE 30 MG PO SCH (06:10)
[2016-05-31] MEDS: IBUPROFEN 400 MG TABLET (FP) PO PRN (06:11)
[2016-05-31] MEDS: LEVOFLOXACIN 500 MG TABLET (FP) PO SCH (06:12)
[2016-05-31] MEDS: LIDOCAINE 5% TOPICAL PATCH TP SCH (10:32)
[2016-05-31] MEDS: DOCUSATE SODIUM 100 MG CAPSULE (FP) PO SCH ×2 (10:32→21:22)
[2016-05-31] MEDS: SERTRALINE HCL 25 MG TABLET (FP) PO SCH (10:32)
[2016-05-31] MEDS: PRENATAL VITAMINS W/ FOLIC ACID TABLET (FP) PO SCH (10:32)
[2016-05-31] MEDS: MAGNESIUM CITRATE 300 ML BOTTLE PO PRN (14:31)
[2016-05-31] MEDS: traZODone HCL 100 MG TABLET (FP) PO SCH (21:22)
[2016-05-31] MEDS: hydrOXYzine PAMOATE 50 MG CAPSULE (FP) PO PRN (21:22)
[2016-05-31] MEDS: THIAMINE HCL 100 MG TABLET (FP) PO SCH (21:22)
[2016-06-01] MEDS ORDERED: METHADONE HCL 40 MG DISPERSABLE TABLET ONE (03:21)
[2016-06-01] MEDS ORDERED: METHADONE HCL 10 MG TABLET ONE (03:21)
[2016-06-01] MEDS: METHADONE 120 MG, METHADONE 30 MG PO SCH (06:03)
[2016-06-01] MEDS: LEVOFLOXACIN 500 MG TABLET (FP) PO SCH (06:04)
[2016-06-01] MEDS: IBUPROFEN 400 MG TABLET (FP) PO PRN ×2 (06:04→21:27)
[2016-06-01] MEDS: SERTRALINE HCL 25 MG TABLET (FP) PO SCH (10:16)
[2016-06-01] MEDS: DOCUSATE SODIUM 100 MG CAPSULE (FP) PO SCH ×2 (10:16→21:25)
[2016-06-01] MEDS: PRENATAL VITAMINS W/ FOLIC ACID TABLET (FP) PO SCH (10:16)
[2016-06-01] MEDS: LIDOCAINE 5% TOPICAL PATCH TP SCH (10:17)
[2016-06-01] MEDS: MAGNESIUM CITRATE 300 ML BOTTLE PO PRN (10:49)
[2016-06-01] MEDS: THIAMINE HCL 100 MG TABLET (FP) PO SCH (21:25)
[2016-06-01] MEDS: traZODone HCL 100 MG TABLET (FP) PO SCH (21:25)
[2016-06-01] MEDS: hydrOXYzine PAMOATE 50 MG CAPSULE (FP) PO PRN (21:27)
[2016-06-02] MEDS ORDERED: METHADONE HCL 10 MG TABLET ONE (05:51)
[2016-06-02] MEDS ORDERED: METHADONE HCL 40 MG DISPERSABLE TABLET ONE (05:51)
[2016-06-02] MEDS: METHADONE 120 MG, METHADONE 30 MG PO SCH (06:13)
[2016-06-02] MEDS: LEVOFLOXACIN 500 MG TABLET (FP) PO SCH (06:14)
[2016-06-02] MEDS: IBUPROFEN 400 MG TABLET (FP) PO PRN ×2 (06:15→21:42)
[2016-06-02] MEDS: PRENATAL VITAMINS W/ FOLIC ACID TABLET (FP) PO SCH (10:15)
[2016-06-02] MEDS: LIDOCAINE 5% TOPICAL PATCH TP SCH (10:15)
[2016-06-02] MEDS: SERTRALINE HCL 25 MG TABLET (FP) PO SCH (10:15)
[2016-06-02] MEDS: DOCUSATE SODIUM 100 MG CAPSULE (FP) PO SCH ×2 (10:15→21:40)
[2016-06-02] MEDS: hydrOXYzine PAMOATE 50 MG CAPSULE (FP) PO PRN (10:16)
[2016-06-02] MEDS: MAGNESIUM CITRATE 300 ML BOTTLE PO PRN (12:45)
[2016-06-02] MEDS: traZODone HCL 100 MG TABLET (FP) PO SCH (21:40)
[2016-06-02] MEDS: diphenhydrAMINE HCL 50 MG CAPSULE PO PRN (21:40)
[2016-06-02] MEDS: THIAMINE HCL 100 MG TABLET (FP) PO SCH (21:40)
[2016-06-03] MEDS ORDERED: METHADONE HCL 10 MG TABLET ONE (05:58)
[2016-06-03] MEDS ORDERED: METHADONE HCL 40 MG DISPERSABLE TABLET ONE (05:59)
[2016-06-03] MEDS: LEVOFLOXACIN 500 MG TABLET (FP) PO SCH (06:24)
[2016-06-03] MEDS: METHADONE 120 MG, METHADONE 30 MG PO SCH (06:24)
[2016-06-03] MEDS: DOCUSATE SODIUM 100 MG CAPSULE (FP) PO SCH ×2 (10:16→21:24)
[2016-06-03] MEDS: SERTRALINE HCL 25 MG TABLET (FP) PO SCH (10:16)
[2016-06-03] MEDS: PRENATAL VITAMINS W/ FOLIC ACID TABLET (FP) PO SCH (10:16)
[2016-06-03] MEDS: MAGNESIUM CITRATE 300 ML BOTTLE PO PRN (10:17)
[2016-06-03] MEDS: hydrOXYzine PAMOATE 50 MG CAPSULE (FP) PO PRN (10:17)
[2016-06-03] MEDS: LIDOCAINE 5% TOPICAL PATCH TP SCH (10:18)
[2016-06-03] MEDS: traZODone HCL 100 MG TABLET (FP) PO SCH (21:24)
[2016-06-03] MEDS: THIAMINE HCL 100 MG TABLET (FP) PO SCH (21:25)
[2016-06-03] MEDS: IBUPROFEN 400 MG TABLET (FP) PO PRN (21:26)
[2016-06-03] MEDS: diphenhydrAMINE HCL 50 MG CAPSULE PO PRN (21:26)
[2016-06-04] MEDS ORDERED: METHADONE HCL 10 MG TABLET ONE (05:59)
[2016-06-04] MEDS ORDERED: METHADONE HCL 40 MG DISPERSABLE TABLET ONE (06:00)
[2016-06-04] MEDS: METHADONE 120 MG, METHADONE 30 MG PO SCH (06:16)
[2016-06-04] MEDS: LEVOFLOXACIN 500 MG TABLET (FP) PO SCH (06:16)
[2016-06-04] MEDS: IBUPROFEN 400 MG TABLET (FP) PO PRN ×2 (06:18→21:19)
[2016-06-04] MEDS: LIDOCAINE 5% TOPICAL PATCH TP SCH (10:30)
[2016-06-04] MEDS: DOCUSATE SODIUM 100 MG CAPSULE (FP) PO SCH ×2 (10:30→21:17)
[2016-06-04] MEDS: PRENATAL VITAMINS W/ FOLIC ACID TABLET (FP) PO SCH (10:30)
[2016-06-04] MEDS: SERTRALINE HCL 25 MG TABLET (FP) PO SCH (10:31)
[2016-06-04] MEDS: hydrOXYzine PAMOATE 50 MG CAPSULE (FP) PO PRN (11:00)
--- NOTE | 2016-06-04 11:33 | PN ---
[id number] 77-86 18-18 106-112/71-77 Date of Session: 06/04/16 Chief Complaint:: Discharge visit HPI: Patient addressed Cocaine and Opioid dependence comorbid with Substance induced mood disorder. ROS: Significant for Scoliosis. Current Medications: Active Medications Generic Name Dose Route Start Last Admin Trade Name Freq PRN Reason Stop Dose Admin Acetaminophen 650 mg 05/11/16 13:50 05/24/16 15:15 Tylenol - PO 650 mg Q4H PRN Administration PAIN Al Hydroxide/Mg Hydroxide 30 ml 05/11/16 13:50 05/15/16 10:03 Mylanta Oral Suspension - PO 30 ml Q6H PRN Administration DYSPEPSIA Diphenhydramine HCl 50 mg 05/11/16 13:50 06/03/16 21:26 Benadryl - PO 50 mg HSMR1 PRN Administration INSOMNIA Docusate Sodium 100 mg 05/22/16 22:00 06/04/16 10:30 Colace - PO 100 mg BID ADI Administration Eucalyptus/Menthol/Phenol/Sorbitol 1 each 05/11/16 13:50 05/21/16 09:56 Cepastat Lozenge - MM 1 each Q4H PRN Administration SORE THROAT Guaifenesin 10 ml 05/11/16 13:50 Robitussin Dm - PO Q6H PRN COUGH Hydroxyzine Pamoate 50 mg 05/11/16 13:50 06/04/16 11:00 Vistaril - PO 50 mg Q4H PRN Administration AGITATION Ibuprofen 400 mg 05/11/16 13:50 06/04/16 06:18 Motrin - PO 400 mg Q6H PRN Administration SEVERE PAIN Levofloxacin 500 mg 05/28/16 15:30 06/04/16 06:16 Levaquin - PO 500 mg DAILY@0600 ADI Administration Lidocaine 1 patch 05/28/16 15:30 06/04/16 10:30 Lidoderm Patch - TP 1 patch DAILY ADI Administration Loperamide HCl 4 mg 05/11/16 13:50 Imodium - PO Q6H PRN DIARRHEA Magnesium Citrate 300 ml 05/30/16 14:50 06/03/16 10:17 Citroma - PO 300 ml DAILY PRN Administration CONSTIPATION Magnesium Hydroxide 30 ml 05/11/16 13:50 05/27/16 16:32 Milk Of Magnesia - PO 30 ml DAILY PRN Administration CONSTIPATION Methadone HCl 120 mg/ 150 mg 05/30/16 06:00 06/04/16 06:16 Methadone HCl 30 mg PO 06/05/16 05:59 150 mg DAILY@0600 ADI Administration Multivit/Folic Acid/Iron 1 tab 05/12/16 10:00 06/04/16 10:30 Vitamins (Sjr) - PO 1 tab DAILY ADI Administration Pseudoephedrine/Triprolidine 1 combo 05/11/16 13:50 Actifed - PO TID PRN NASAL CONGESTION Sertraline HCl 25 mg 05/28/16 16:00 06/04/16 10:31 Zoloft - PO 25 mg DAILY ADI Administration Thiamine HCl 100 mg 05/11/16 22:00 06/03/16 21:25 Vitamin B1 - PO 100 mg HS ADI Administration Trazodone HCl 100 mg 05/23/16 22:00 06/03/16 21:24 Desyrel - PO 100 mg HS ADI Administration Current Side Effect: No Lab tests ordered: No Lab tests reviewed: Yes Provider note:: Patient will complete this program tomorrow.She has met her treatment goals and will continue to address her issues on outpatient basis.Patient continues to find that Trazodone 100 mg po hs and Zoloft 25 mg po daily help to reduce her sleeping difficulties and some mood instability.Scripts for 30 days provided.Therpay provided focusing on relapse prevention including coping skills,support utilization.Patient is stable for discharge tomorrow 06/05/16. Total face to face time:: 30 Mental Status Exam - Mental Status Exam Alert and Oriented to: Time, Place, Person Cognitive Function: Grossly Intact Patient Appearance: Well Groomed Mood: Hopeful, Euthymic Affect: Appropriate, Mood Congruent Patient Behavior: Cooperative Speech Pattern: Clear Voice Loudness: Normal Thought Process: Goal Oriented Thought Disorder: Not Present Hallucinations: Denies Suicidal Ideation: Denies Homicidal Ideation: Denies Insight/Judgement: Fair Sleep: Fair Appetite: Good Muscle strength/Tone: Normal Gait/Station: Normal
[2016-06-04] MEDS: traZODone HCL 100 MG TABLET (FP) PO SCH (21:17)
[2016-06-04] MEDS: THIAMINE HCL 100 MG TABLET (FP) PO SCH (21:17)
[2016-06-04] MEDS: diphenhydrAMINE HCL 50 MG CAPSULE PO PRN (21:19)
[2016-06-05] MEDS ORDERED: METHADONE HCL 10 MG TABLET PO SCH (06:15)
[2016-06-05] MEDS ORDERED: METHADONE HCL 40 MG DISPERSABLE TABLET ONE (06:27)
[2016-06-05] MEDS ORDERED: METHADONE HCL 10 MG TABLET ONE (06:27)
[2016-06-05] MEDS: IBUPROFEN 400 MG TABLET (FP) PO PRN (06:28)
[2016-06-05] MEDS ORDERED: METHADONE 120 MG, METHADONE 30 MG PO SCH (06:30)
[2016-06-05] MEDS: hydrOXYzine PAMOATE 50 MG CAPSULE (FP) PO PRN (06:32)
[2016-06-05 06:45] VITALS: BP 125/84; PULSE 82; TEMP 97.2
[2016-06-05] MEDS: DOCUSATE SODIUM 100 MG CAPSULE (FP) PO SCH (09:52)
[2016-06-05] MEDS: LIDOCAINE 5% TOPICAL PATCH TP SCH (09:52)
[2016-06-05] MEDS: PRENATAL VITAMINS W/ FOLIC ACID TABLET (FP) PO SCH (09:52)
[2016-06-05] MEDS: SERTRALINE HCL 25 MG TABLET (FP) PO SCH (09:52)
== END 2016-06-05 09:55 | disposition home or self-care (01) | DRG 772 ==
LOC: YASAS 11:25 → Y3E 14:02
PROVIDERS: ADMIT Psychiatry & Neurology Psychiatry; ATTEND Psychiatry & Neurology Psychiatry
PROC: HZ42ZZZ Group Counseling for Substance Abuse Treatment, Cognitive-Behavioral (ICD-10-PCS; principal; 2016-06-05)
DX: F11.20 Opioid dependence, uncomplicated (principal); F14.20 Cocaine dependence, uncomplicated; F19.24 Other psychoactive substance dependence with psychoactive substance-induced mood disorder; M41.9 Scoliosis, unspecified
CPT/HCPCS: 36415; 74000-TC; 80053; 81003; 81015; 85027; 86593; 87086; 87186; 90732; 93005; 93010; G0009